=== PATIENT | female | born 1980 | race Hispanic/Latino ===

== ENCOUNTER 2016-09-19 07:30 | Inpatient (IN) | payer MEDICAID ==
[~2016-09-19] VITALS: Ht 154.9 cm; Wt 108.4 kg
--- NOTE | 2016-09-19 07:41 | PCM.HPOB ---
Subjective Date of Service: Sep 19, 2016 Referring Provider: Admitting Physician: Kika Mcdonald MD Primary Care Physician: Nopcp Attending Physician: Kika Mcdonald MD Chief Complaint Planned Caesarean delivery History of Present History of Present Illness This is a 36 year old at 38 weeks 3 days dating from LMP with DEEPAK 09/26/16 presenting for repeat scheduled delivery followed by bilateral tubal ligation. She has a history of two deliveries and has requested tubal ligation at the time of the procedure. complicated by advanced maternal age, varicella non immune and an anterior wall vaginal wart. She is O +, RPR non reactive, rubella immune, varicella non immune, HIV negative, HepB antibodies negative and Hep C antibodies negative. Past Medical History Obstetrical History: G5 T3 L3 Genetic Screening/Counseling Genetic Screening/Counseling: Unknown Allergy Coded Allergies: Oxycodone (Unverified Allergy, Unknown, 05/09/10) Exam Objective See Nextgen History and Physical Labs/Diagnostics Maternal Blood Type: O Hx Rho(D) Immune Globulin: No Group B Strep Results: Negative Rubella: Immune OB Intrapartum Assessment/Plan Assessment Scheduled Caesarian delivery Post plan: Continue routine post care Attending Statement The patient was seen and examined together with Dr. Catie Daigle DO on 2016 and I agree with the history, exam and plan as outlined in the note above. Catie Daigle DO Sep 19, 2016 07:41 Ashlyn Navarro MD Sep 20, 2016 06:19 Catie Daigle DO Sep 19, 2016 07:41
[2016-09-19] MEDS ORDERED: Hemorrhage Kit, Post Partum XX ONE ×2 (10:35→14:10)
[2016-09-19] MEDS ORDERED: CeFAZolin Inj 2 GM in IV Premix 1 EACH IV SCH (10:35)
[2016-09-19] MEDS ORDERED: Oxytocin 10 Unit/mL Inj IM PRN ×2 (10:35→14:10)
[2016-09-19] MEDS ORDERED: Carboprost 250 mCg/mL Inj IM PRN ×2 (10:35→14:10)
[2016-09-19] MEDS ORDERED: Methylergonovine 0.2 mg/mL Inj IM PRN ×2 (10:35→14:10)
[2016-09-19] MEDS ORDERED: Sodium Citrate-Citric Acid 15 mL Solution PO SCH (10:35)
[2016-09-19] MEDS: Lactated Ringer's 1,000 ML IV SCH ×2 (11:00→12:09)
[2016-09-19 11:04] LABS: Mean Corpuscular Hemoglobin 32.4 pg (27.0-35.0); Mean Corpuscular Volume 95.6 fL (81-100)
[2016-09-19] MEDS ORDERED: PREN1TAB87 PO (11:13)
[2016-09-19] MEDS ORDERED: Morphine PF 1 mg/mL 10 mL Inj INTRATHEC ONE (11:50)
[2016-09-19] MEDS ORDERED: fentaNYL-PF 50 mCg/mL 2 mL Inj IVPUSH PRN (11:50)
[2016-09-19] MEDS ORDERED: HYDROmorphone 1 mg/mL Inj IVPUSH PRN (11:50)
[2016-09-19] MEDS ORDERED: Atropine 0.4 mg/mL Inj IV PRN (11:50)
[2016-09-19] MEDS ORDERED: Ondansetron 2 mg/mL 2 mL Inj IVPUSH PRN (11:50)
[2016-09-19] MEDS ORDERED: EPHEDrine Sulfate 50 mg/mL Inj IVPUSH PRN (11:50)
--- NOTE | 2016-09-19 12:18 | PCM.HPANE ---
Patient Data Surgeon Admitting Provider:Kika Mcdonald MD Attending Provider:Kika Mcdonald MD Primary Care Physician:Karan Other Provider:Gaby Nicole Anesthesia Reason for Visit C/S C/S Ht/WT & BMI Body Mass Index Allergies Coded Allergies: Oxycodone (Unverified Allergy, Unknown, 05/09/10) Past Anesthesia History Anesthesia History: Denies:: Abnormal Airway, Anesthesia Reactions, Difficult Intubation, Fam Anesthesia Reaction, Fam Malignant Hypertherm, Malignant Hyperthermia Diabetes History Hx Diabetes?: No MRSA MRSA: No Medications Reported Medications Vit W-Ca,Fe,FA(<1 mg) ( Vitamins)1 Each Tablet1 Each PO DAILY 09/19/16 History History of ENT Problems?: No HEENT History: Denies:: Abnormal Airway Cataracts Difficult Intubation Dysphagia Glaucoma Hearing Problem Sinus Problem TMJ Denture Type: None Teeth Condition: Within Normal Limits Hx of Heart Problems?: No Cardiovascular History: Denies:: AICD Abdominal Aortic Aneurism Atrial Fibrillation Cardiac Surgery Chest Pain Congestive Heart Failure Coronary Artery Disease Edema Heart Murmur Hypertension Irregular Heartbeat Pacemaker Peripheral Vascular Rheumatic Fever Thrombophlebitis Valvular Heart Disease Hx of Respiratory Problem?: No Respiratory History: Denies:: Asthma COPD Chest Surgery Cough Dyspnea Emphysema Hemoptysis Oxygen Administration Pneumonia Pulmonary Embolism Tuberculosis Use of C-PAP Machine Use of Inhalers / NEBS Hx Neurologic Problems?: No Hx of GI Problems?: No Hx of Problems?: No Female Hx: Positive for:: Currently Hx Musculoskeletal Problems?: No Hx of Psycho/Social Problems?: No Hx Surgeries?: No Hx Any Other Health Problems?: No Hx Diabetes: No Hx Alcohol Use: NoHx Substance Use: No Smoking Status: Never Smoker Stop/Bang Risk Assessment Category Category 1A: Patient has history of documented sleep apnea, and HAS NOT received any narcotic, sedative or anesthesia administration during this stay. Category 1B: Patient has history of documented sleep apnea, and HAS received any narcotic , sedative or anesthesia administration during this stay Category 2: Patient has SUSPECTED Obstructive Sleep Apnea, and HAS received any narcotic , sedative or anesthesia administration during this stay. Category 3: Patient has SUSPECTED Obstructive Sleep Apnea and HAS NOT received narcotic, sedative or anesthesia administration during this stay. Category 4: Outpatient in Procedural Areas with known sleep apnea or who screen positive for High Risk via the STOP/BANG questionnaire. Exam Exam General Appearance: Alert, Oriented X3 HEENT/AIRWAY: MP 2, Neck Movement (FROM) Lungs: Clear to Auscultation, Clear to Percussion Heart: Exam Unremarkable, Regular Rate/Rhythm Meds/Labs/Diagnostics Admission Meds Current Medications Lactated Ringer's (Lr) 1,000 ml @ 125 mls/hr Q8H IV Last administered on t 11:00; Start 09/19/16 at 10:31; Stop 09/19/16 at 18:30 Labs Test 09/19/16 10:45 White Blood Count 7.7th/mm3 (3.8-10.1) Red Blood Count 3.67mil/mm3 (3.90-5.20) Hemoglobin 11.9g/dL (12.0-15.6) Hematocrit 35.1% (35.0-46.0) Mean Corpuscular Volume 95.6fL (81-100) Mean Corpuscular Hemoglobin 32.4pg (27.0-35.0) Mean Corpuscular Hemoglobin Concent 33.9% (32.0-37.0) Red Cell Distribution Width 14.6% (12.3-15.4) Platelet Count 184bil/L (150-400) Plan Impression Patient chart reviewed, patient interviewed and anesthestic plan with risks, benefits, and alternatives discussed, and informed consent obtained. ASA Physical Status: ASA2 Mod Systemic Disease Anesthetic Plan: SAB Bene/Risks/Altern/Consents: Yes HP Complete Prior to Induction: Yes Other Discussed IT morphine. Pt. tolerated IT morphine well during last c/s. We will proceed with IT morphine. Allergy to oxycodone is rash, but she tolerates other opiates well Zackary Hernandez MD Sep 19, 2016 11:46
[2016-09-19] MEDS ORDERED: Lactated Ringer's 1,000 ML IV SCH (14:06)
[2016-09-19] MEDS ORDERED: LANOlin HPA 7 Gm Ointment TOPICAL PRN (14:10)
[2016-09-19] MEDS ORDERED: Oxytocin 30 Units/500 mL LR 30 UNITS in IV Premix 1 EACH IV PRN (14:10)
[2016-09-19] MEDS ORDERED: Sodium Chloride LOK Flush 10 mL Syringe IVFLUSH PRN (14:10)
--- NOTE | 2016-09-19 14:26 | PCM.ANEP1 ---
Post Anesthesia PACU Phase 1 Assessment Anesthetic Administered: SAB Level of Alertness: Awake, talking CODY's with Equal Strength: No (SAB) Pain: No Nausea or Vomiting: No CV Function & Hydration Stable: Yes Airway Device: Oxygen Delivery: Room Air Lungs: Clear to Auscultation, Clear to Percussion PACU Phase 2 Assessment Complications: No Follow up Care: No Patient Instructions Provided: N/A Comments See anesth record for PACU VS> PACU VSS Zackary Hernandez MD Sep 19, 2016 14:26
[2016-09-19] MEDS: Acetaminophen IV 1,000 MG in IV Premix 1 EACH IV PRN (14:51)
--- NOTE | 2016-09-19 20:04 | OP ---
[address] [address] OPERATIVE REPORT PATIENT: JIMI MASCORRO : 1980 MR#: [id number] ADMIT: 09/19/2016 JOB ID: [id number] DATE OF SURGERY: 09/19/2016 SURGEON: Ashlyn Navarro MD NOTARY PUBLIC: Dori Miller MD RESIDENT: More Kramer DO, PGY-1 PREOPERATIVE DIAGNOSIS(ES): 1. Previous delivery x2. 2. Advanced maternal age. 3. Thirty-nine weeks gestation. 4. Undesired fertility. POSTOPERATIVE DIAGNOSIS(ES): 1. Previous delivery x2. 2. Advanced maternal age. 3. Thirty-nine weeks gestation. 4. Undesired fertility. PROCEDURE PERFORMED: 1. Repeat low transverse delivery. 2. Bilateral tubal ligation using bilateral salpingectomy method. ANESTHESIA: Spinal. ESTIMATED BLOOD LOSS: 500 mL. COMPLICATIONS: None. FINDINGS AT TIME OF SURGERY: A male infant in a cephalic presentation with an infant weight of 3609 grams. Apgars of 9 and 9. The uterus, fallopian tubes, and ovaries were normal appearance bilaterally. There are no intraperitoneal adhesions. INDICATION FOR PROCEDURE: Patient is a 36-year-old, 5, para 3 with a history of two prior deliveries. At 39 weeks gestation. PROCEDURE IN DETAIL: Patient was taken to the operating room, where her spinal anesthesia was found be adequate. She was placed in a lithotomy position in a leftward tilt and prepared and draped in normal sterile fashion. A Pfannenstiel incision was made with a scalpel. This was carried down to the underlying fascia with the Bovie cautery. The fascia was nicked in the midline and this incision was extended laterally with the Jackson scissors. The underlying rectus muscle was dissected off with blunt and sharp dissection both superiorly and inferiorly. The rectus muscles were in midline and the perineum was entered bluntly with surgeon's hands. This incision was extended with gentle traction. The lower uterine segment was identified. A bladder flap was created. The uterus incised in low transverse fashion with scalpel. The infant was delivered in a cephalic presentation without difficulty. After 1 minute, the cord was doubly clamped and ligated and infant handed off to the waiting nurses. Cord blood was sent. The placenta was removed manually. The uterus was then exteriorized, cleared of all clots and debris. The uterine incision was repaired in a single layer with 0-Vicryl suture in a running fashion. Good hemostasis assured. At this time the gutters were then irrigated with copious amounts of normal saline. A bilateral tubal ligation was then performed. Both the left and right fallopian tubes were removed in their entirety. The right fallopian tube was identified. Several defects were made in the mesosalpinx and any vessels were tied off with 0 chromic suture. The ends of the tubes were ligated off with 0 chromic suture and the tube was excised using Metzenbaum scissors. In a similar fashion, the left fallopian tube was excised. Good hemostasis was assured. The uterus was returned to the patient's peritoneal cavity. The incision was noted to be hemostatic. The fascia was then reapproximated with 0-Vicryl suture in a running fashion. Subcutaneous layer was closed with 0 plain gut. Skin was closed with 4-0 Monocryl in a subcuticular fashion. Dermabond and Steri-Strips applied. All lap, instrument, and needle counts were correct x2 at the end of procedure. Patient was taken to her room awake and in good condition.
[2016-09-20] MEDS: Acetaminophen IV 1,000 MG in IV Premix 1 EACH IV PRN ×2 (00:44→09:51)
[2016-09-20 07:47] LABS: Mean Corpuscular Volume 97.3 fL (81-100)
[2016-09-20 07:48] LABS: Mean Corpuscular Hemoglobin 32.3 pg (27.0-35.0)
[2016-09-20] MEDS ORDERED: EPHEDrine/NS 5 mg/mL 5 mL Syringe ONE (08:50)
[2016-09-20] MEDS ORDERED: Glycopyrrolate 0.2 MG/ML 1mL Inj ONE (08:50)
[2016-09-20] MEDS ORDERED: Oxytocin 10 Unit/mL Inj ONE (08:50)
[2016-09-20] MEDS ORDERED: Phenylephrine/NS 100 mCg/mL 10 mL Syringe IVPUSH ONE (08:50)
[2016-09-20] MEDS ORDERED: Ondansetron 2 mg/mL 2 mL Inj ONE (08:53)
--- NOTE | 2016-09-20 15:39 | PROG NOTE ---
[address] [address] PROGRESS NOTE PATIENT: JIMI MASCORRO : 1980 MR#: [id number] ADMIT: 09/19/2016 JOB ID: [id number] DATE: 09/20/2016 SUBJECTIVE: The patient is a 36-year-old, para 3 now who had repeat low transverse delivery at 39 weeks yesterday on September 19, 2016. This is her postoperative day one. The went uncomplicated with estimated blood loss of 500 mL. She delivered male with weight 3609 g with score 9 and 9. The patient is trying to ambulate, doing well. The Casper catheter was removed early in the morning and she was able to urinate without problems. She is tolerating regular food, and trying to breast feed. Her vital signs are temperature 36.5, pulse 89, respiratory rate 16, blood pressure 118/78. General: The patient is awake, alert, oriented x3. Appropriate mood and affect. HEENT: PERRLA. Chest: Clear bilaterally. Good respiratory effort. Cardiovascular system: Regular rate and rhythm. Abdomen: The dressing was removed. This skin incision is dry, clean, intact. Steri-Strips are applied. They are dry and clear. The fundus is firm at the level of the umbilicus. Vaginal exam: No vaginal bleeding or abnormal vaginal discharge. Extremities: No pitting edema. No calf tenderness. Today's labs: WBC count 7.1, the same as yesterday. Hemoglobin is 9.6, hematocrit 28.9, platelet count 144. ASSESSMENT AND PLAN: The patient is a 36-year-old, para 3, status post delivery for two prior deliveries, postoperative day one. The was uncomplicated. Postoperative is uncomplicated as well. Casper catheter was removed, dressing was removed. The order is written to remove the Hep-Lock and we will continue with regular diet and pain management as written. Ambulation was encouraged. The patient will be re-evaluated in the morning for possible discharge.
--- NOTE | 2016-09-21 10:00 | PCM.DC.OB ---
Obstetrical Discharge Summary Date of Service Sep 21, 2016 Date of hospital admission Sep 19, 2016 at 09:48 Date of Discharge: Sep 21, 2016 Providers Admitting Physician: Kika Mcdonald MD Primary Care Physician: Nopaby Attending Physician: Kika Mcdonald MD Diagnosis at Time of Discharge Advanced maternal age Repeat scheduled delivery Problems: (1) 39 weeks gestation of Status: Resolved ICD Code: Z3A.39 (2) deliv due to previous difficult deliv, deliv, curr hospitaliz Status: Resolved ICD Code: O99.89 Brief History and Physical: This is a 36 year old now at 38 weeks 3 days dating from LMP with DEEPAK 09/26 presented for repeat scheduled delivery followed by bilateral tubal ligation. She has a history of two deliveries and has requested tubal ligation at the time of the procedure. complicated by advanced maternal age, varicella non immune and an anterior wall vaginal wart. She is O +, RPR non reactive, rubella immune, varicella non immune, HIV negative, HepB antibodies negative and Hep C antibodies negative. She is resting comfortably. She continues to have mild abdominal pain. She has light lochia. She denies headache, chest pain and shortness of breath Vitals are reviewed and within normal limits. A temperature of 36.6 Celsius and a blood pressure of 126/75 are noted. At the time of discharge, she is ambulating independently, has not had a bowel movement but is flatulent, is urinating without difficulty, is breast-feeding, is eating a general diet and her mood is stable. Hospital Course: This is 36-year-old man who presented to labor and delivery for scheduled repeat delivery at 38 weeks and 3 days. delivery was performed at 1230 on 09/19/16 without complication. A male infant in a cephalic presentation with an weight of 3609 grams. Apgars of 9 and 9. The uterus, fallopian tubes, and ovaries were normal appearance bilaterally. There are no intraperitoneal adhesions. A scheduled bilateral tubal ligation followed with delivery. The patient had uneventful procedures without complications as well as an uneventful postoperative period. Docusate Sodium (Colace) 100 Mg Capsule 100 MG PO TIDWM PRN PRN For Constipation Prescribed by: PERRI DAIGLE DO Ibuprofen (Ibuprofen) 800 Mg Tablet 800 MG PO Q6H PRN PRN For Pain Prescribed by: PERRI DAIGLE DO Vit W-Ca,Fe,FA(<1 mg) ( Vitamins) 1 Each Tablet 1 EACH PO DAILY (Reported) Tramadol (Tramadol) 50 Mg Tablet 50 MG PO Q4H PRN PRN For Pain Prescribed by: PERRI DAIGLE DO Disposition Home Follow-up plan 2 weeks at [facility] Discharge Diet: No restrictions Discharge Activity-General: Pelvic Rest for 6 weeks, Try not to overdue, Be up and about, Balance rest and activity, Ice incision 3-5 time/day for 20min, Activity as pain allows, Activity as energy allows, No lifting >15 pounds for 2 weeks Patient instructions Continue your vitamin. Do not take more pain medication (Tramadol) than is necessary -- less is better. Be sure to follow up in 2 weeks and then again in 6 weeks at [facility]. Pelvic rest for 6 weeks (nothing per vagina including intercourse, tampons) If you have a fever greater than 100.4, please call [facility]. There is always someone hearing healthcare practitioner to talk to. If you have an increase in bleeding, call [facility]. If you have a lot of bleeding suddenly, especially if you have symptoms of dizziness & weakness with it, get emergency help. When you see [facility] in two weeks, you will be informed of the results of all the labs. If you start experiencing extreme depression, especially if you feel that you are a danger to yourself or your family, seek emergency help. You have been through a lot -- BE SURE TO TAKE CARE OF YOURSELF. Attending Statement: The patient was seen and examined together with Perri Chavez DO on 09/21 and I agree with the history, exam and plan as outlined in the note above. Perri Daigle DO Sep 21, 2016 10:00 Ashlyn Navarro MD Sep 25, 2016 08:53
--- NOTE | 2016-09-21 10:07 | PCM.DIOB ---
Obstetrical Disch Instruction Date of Service: Sep 21, 2016 Dates of Hospitalization Date of Hospital Admission Sep 19, 2016 at 09:48 Providers Admitting Physician: Kika Mcdonald MD Primary Care Physician: Nopaby Attending Physician: Kika Mcdonald MD Discharge Diagnosis Discharge Diagnosis Scheduled repeat delivery Problems: (1) 39 weeks gestation of Status: Resolved ICD Code: Z3A.39 (2) deliv due to previous difficult deliv, deliv, curr hospitaliz Status: Resolved ICD Code: O99.89 Diet Discharge Diet: No restrictions Activity Discharge Activity-General: Pelvic Rest for 6 weeks, Try not to overdue, Balance rest and activity, Ice incision 3-5 time/day for 20min, Activity as pain allows, Activity as energy allows, No lifting >10 pounds for 4-6 weeks Dressing and Incisional Care Dressing Care: Allow Steri Stripes to fall off Hygiene: May shower, NO bathtub, hot tub or whirlpool, Sitz bath Additional Instructions Discharge Instructions Continue your vitamin. Do not take more pain medication (Tramadol) than is necessary -- less is better. Be sure to follow up in 2 weeks and then again in 6 weeks at [facility]. Pelvic rest for 6 weeks (nothing per vagina including intercourse, tampons) If you have a fever greater than 100.4, please call [facility]. There is always someone real estate listing consultant to talk to. If you have an increase in bleeding, call [facility]. If you have a lot of bleeding suddenly, especially if you have symptoms of dizziness & weakness with it, get emergency help. When you see [facility] in two weeks, you will be informed of the results of all the labs. If you start experiencing extreme depression, especially if you feel that you are a danger to yourself or your family, seek emergency help. You have been through a lot -- BE SURE TO TAKE CARE OF YOURSELF. Follow Up Plan Follow Up Plan [facility] Call your provider for: Fever or Chills, Shortness of breath, Heavy vaginal bleeding, Heavy bleeding, Epigastric pain, Excessive constipation, Vaginal discomfort, Red painful breasts Catie Daigle DO Sep 21, 2016 10:07 bleeding, Heavy bleeding, Epigastric pain, Excessive constipation, Vaginal discomfort, Red painful breasts Pilo,[place] L DO Sep 21, 2016 10:07
[2016-09-21] MEDS ORDERED: IBUP800T28 PO (10:10)
[2016-09-21] MEDS ORDERED: DOCU-41 PO (10:10)
[2016-09-21] MEDS ORDERED: TRAM50TA2 PO (10:25)
--- NOTE | 2016-09-22 13:26 | PATH ---
SURGICAL PATHOLOGY Attending Physician:Ashlyn Navarro, CASE STATUS: Signed Out PATIENT NAME: JIMI MASCORRO PID: [id number] : 1980 DATE COLLECTED:09/19/2016 23:25 SPECIMEN: 1: Fallopian Tube, Sterilization 2: Fallopian Tube, Sterilization CLINICAL HISTORY: 1). LEFT FALLOPIAN TUBE 2). RIGHT FALLOPIAN TUBE FINAL DIAGNOSIS: 1.LEFT FALLOPIAN TUBE: SEGMENT OF FALLOPIAN TUBE WITH NO PATHOLOGIC ALTERATIONS. 2.RIGHT FALLOPIAN TUBE: SEGMENT OF FALLOPIAN TUBE WITH NO PATHOLOGIC ALTERATIONS. ICD10 Z30.2 GROSS DESCRIPTION: The specimen is received fresh in 2 containers both labeled with the patient's name. 1). The specimen is labeled "left fallopian tube" and consists of a cylindrical shaped portion of tissue which measures 7.0 x 0.6 x 0.6 CM. The specimen is inked blue. 4 inside outside sales representative sections are submitted in cassette 1A. 2). The specimen is labeled "R. fallopian tube" and consists of a cylindrical shaped portion of tissue which measures 5.5 x 0.7 x 0.6 CM. 4 inside outside sales representative sections are submitted in cassette 2A. 09/20/2016MA MICRO DESCRIPTION: See diagnosis. ICD-9 CODES: CPT CODES: 1: 88037 2: 90487 Electronically Signed Out Shruti Carrillo MD [facility] [address], [place] [address] Technical component performed at [facility], [facility] [address], [place], [address]
== END 2016-09-21 11:15 | disposition home or self-care (01) | DRG 766 ==
LOC: EDSTATUS 07:30 → FBC 09:48
PROVIDERS: ADMIT Obstetrics & Gynecology; ATTEND Obstetrics & Gynecology
PROC: 0UT70ZZ Resection of Bilateral Fallopian Tubes, Open Approach (ICD-10-PCS; 2016-09-19)
PROC: 10D00Z1 Extraction of Products of Conception, Low, Open Approach (ICD-10-PCS; principal; 2016-09-19 12:30)
DX: O34.211 Maternal care for low transverse scar from previous cesarean delivery (principal); Z30.2 Encounter for sterilization; Z3A.39 39 weeks gestation of pregnancy; Z37.0 Single live birth